=== PATIENT | female | born 1950 | race Two or more races ===

== ENCOUNTER 2020-11-02 06:53 | Day surgery (SDC) | payer OTHER | END 2020-11-02 12:30 | disposition home or self-care (01) | LOC: AMB-ENDOS 06:53 | PROVIDERS: ATTEND Surgery | DX: C20 Malignant neoplasm of rectum (principal); Z20.828 Contact with and (suspected) exposure to other viral communicable diseases ==

== ENCOUNTER 2021-01-14 09:00 | Inpatient (IN) | payer OTHER ==
[~2021-01-14] VITALS: Ht 152.4 cm; Wt 51.3 kg
[2021-01-25] MEDS ORDERED: HYOSCYAMINE0.125 M1 SL (10:14)
[2021-01-25] MEDS ORDERED: OXYC1TAB9 PO (10:14)
== END 2021-01-26 08:33 | disposition home or self-care (01) | DRG 331 ==
LOC: SURG 01-21 07:00 → O/R 01-21 07:00 → SURG 01-21 07:00 → SURH 01-21 09:00 → SURG 01-21 15:50 → SURH 01-21 16:00 → SURG 01-26 08:33
PROVIDERS: ADMIT Surgery; ATTEND Surgery
PROC: 0DBN4ZZ Excision of Sigmoid Colon, Percutaneous Endoscopic Approach (ICD-10-PCS; 2021-01-21)
PROC: 0DTP4ZZ Resection of Rectum, Percutaneous Endoscopic Approach (ICD-10-PCS; 2021-01-21)
PROC: 07BC4ZZ Excision of Pelvis Lymphatic, Percutaneous Endoscopic Approach (ICD-10-PCS; 2021-01-21)
PROC: 0D1B4Z4 Bypass Ileum to Cutaneous, Percutaneous Endoscopic Approach (ICD-10-PCS; principal; 2021-01-21 16:00)
DX: C19 Malignant neoplasm of rectosigmoid junction (principal); K63.5 Polyp of colon; I10 Essential (primary) hypertension

== ENCOUNTER 2021-04-22 10:55 | Outpatient (CLI) | payer OTHER ==
[~2021-04-22 10:55] MED LIST: HYOSCYAMINE0.125 M1 SL; OXYC1TAB9 PO
== END 2021-04-22 11:03 | disposition home or self-care (01) ==
LOC: RX STUDY 10:55
PROVIDERS: ATTEND Surgery
DX: D37.5 Neoplasm of uncertain behavior of rectum (principal); R19.5 Other fecal abnormalities; R19.7 Diarrhea, unspecified; C20 Malignant neoplasm of rectum

== ENCOUNTER 2021-05-17 08:45 | Inpatient (IN) | payer OTHER ==
[~2021-05-17] VITALS: Ht 152.4 cm; Wt 68.0 kg
[2021-05-27] MEDS ORDERED: PROTONIX40 MG PO (09:58)
[2021-05-27] MEDS ORDERED: DICLOFENAC SODI75 MG PO (09:58)
== END 2021-05-27 13:57 | disposition home or self-care (01) | DRG 348 ==
LOC: SURH 05-24 08:45 → O/R 05-24 08:49 → SURH 05-24 11:15
PROVIDERS: ADMIT Surgery; ATTEND Surgery
PROC: 0DBB4ZZ Excision of Ileum, Percutaneous Endoscopic Approach (ICD-10-PCS; principal; 2021-05-24 11:15)
DX: Z43.2 Encounter for attention to ileostomy (principal); C20 Malignant neoplasm of rectum; I10 Essential (primary) hypertension

== ENCOUNTER → 2022-05-11 07:36 | Outpatient (CLI) | payer OTHER ==
[~2022-05-11 07:36] MED LIST changes: +DICLOFENAC SODI75 MG PO; +PROTONIX40 MG PO
== END | disposition home or self-care (01) ==
LOC: NUCLEAR 07:00
PROVIDERS: ATTEND Surgery
DX: C20 Malignant neoplasm of rectum (principal); D37.5 Neoplasm of uncertain behavior of rectum; R19.5 Other fecal abnormalities; R19.7 Diarrhea, unspecified
CPT/HCPCS: 78812; A9552

== ENCOUNTER 2022-10-11 12:52 | Inpatient (IN) | payer OTHER ==
[~2022-10-11] VITALS: Ht 152.4 cm; Wt 42.2 kg
[~2022-10-11 12:52] MED LIST changes: +ABANEU-SL TABL1 EACH SL; +FUSION PLUS CA1 EACH PO; +PANTOPRAZOLE SO40 MG PO; +PROTEINEX-18 LI30 ML PO
--- NOTE | 2022-10-11 13:07 | NUR ---
SE RECIBE PTE ALERTA Y ORIENTADA X3 ACOMPANADA DE PACE [place] .PTE REFIERE NO PODER ORINAR HACE 5 PRACHI Y TIENE MAXIM PIES HINCHADOS,PTE TIENE HISTORIAL DE HOSPITALIZACION POR OPERACION EN INTESTINO, SE MONITOREAN S/V Y SE UBICA PASILLO
--- NOTE | 2022-10-11 14:32 | NUR ---
PACIENTE EVALUADA POR LA . ELAINETA. SE EDUCA PACIENTE Y FAMILIAR SOBRE EL [place] MEDICO Y LA MISMA REFIERE ENTENDER. RN ORELLANA CANALIZA PACIENE EN MANO IZQUIERDA # 20 Y ADMINISTRA MEDS DUANE ORDEN MEDICA. SE INSERTA FRANCO PRESENTANDO ORINA COLOR BROWN Y CON SEDIMENTACION. SE SID U/C Y U/A.
--- NOTE | 2022-10-11 16:47 | NUR ---
PTE RE-EVALUADA POR . SE ORIENTA A PTE Y FAMILIAR SOBRE ORDENES DE [place] REFIEREN COMPRENDER. SE COLECTAN MUESTRAS DE LABORATORIOS, BAJO MEDIDAS ASEPTICAS. SE ADMINISTRA MEDICAMENTO, BAJO MEDIDAS ASEPTICAS.
[2022-10-14] MEDS ORDERED: PANTOPRAZOLE SO40 MG PO (10:16)
[2022-10-14] MEDS ORDERED: ABANEU-SL TABL1 EACH SL (10:16)
[2022-10-14] MEDS ORDERED: KALEXATE15 GM PO (10:16)
== END 2022-10-14 12:31 | disposition home or self-care (01) | DRG 682 ==
LOC: ER 12:52 → EDSEX 12:55 → ER 12:55 → EDSEX 19:10 → MEDI 19:10 → SEC-K 19:10 → MEDI 23:42
PROVIDERS: ADMIT Internal Medicine Geriatric Medicine; ATTEND Internal Medicine Geriatric Medicine
PROC: B24BZZZ Ultrasonography of Heart with Aorta (ICD-10-PCS; principal; 2022-10-12)
PROC: 02HV33Z Insertion of Infusion Device into Superior Vena Cava, Percutaneous Approach (ICD-10-PCS; 2022-10-12)
PROC: 4A12X4Z Monitoring of Cardiac Electrical Activity, External Approach (ICD-10-PCS; 2022-10-12)
PROC: 30233N1 Transfusion of Nonautologous Red Blood Cells into Peripheral Vein, Percutaneous Approach (ICD-10-PCS; 2022-10-12)
DX: N17.8 Other acute kidney failure (principal); I26.99 Other pulmonary embolism without acute cor pulmonale; C20 Malignant neoplasm of rectum; I82.402 Acute embolism and thrombosis of unspecified deep veins of left lower extremity; E87.5 Hyperkalemia; D63.0 Anemia in neoplastic disease; N13.39 Other hydronephrosis; R60.1 Generalized edema; E03.9 Hypothyroidism, unspecified; I27.20 Pulmonary hypertension, unspecified; Z93.3 Colostomy status; Z74.01 Bed confinement status; I12.9 Hypertensive chronic kidney disease with stage 1 through stage 4 chronic kidney disease, or unspecified chronic kidney disease; N18.2 Chronic kidney disease, stage 2 (mild)